=== PATIENT | male | born 1990 | race Caucasian/White ===

== ENCOUNTER 2023-11-23 14:01 | Inpatient (IN) | payer OTHER ==
[2023-11-23 14:45] VITALS: BMI 24.3
[2023-11-23] MEDS ORDERED: MAG HYDROX/AL HYDROX/SIMETH 30 ML UNIT-DOSE CUP PO PRN (15:13)
[2023-11-23] MEDS ORDERED: ONDANSETRON *ODT* 4 MG TABLET SL PRN (15:13)
[2023-11-23] MEDS ORDERED: BENZOCAINE/MENTHOL (CHLORASEPTIC ) LOZENGE MM PRN (15:13)
[2023-11-23] MEDS ORDERED: guaiFENesin 600 MG TABLET.ER (FP) PO PRN (15:13)
[2023-11-23] MEDS ORDERED: BISMUTH SUBSALICYLATE 524 MG/30 ML PO PRN (15:13)
[2023-11-23] MEDS ORDERED: LOPERAMIDE HCL 2 MG CAPSULE PO PRN (15:13)
[2023-11-23] MEDS ORDERED: ACETAMINOPHEN 325 MG TABLET (FP) PO PRN (15:13)
[2023-11-23] MEDS ORDERED: NALOXONE (NARCAN) HCL 4 MG/0.1 ML SPRAY NS PRN (15:13)
[2023-11-23] MEDS ORDERED: DICYCLOMINE HCL 10 MG CAPSULE PO PRN (15:13)
[2023-11-23] MEDS ORDERED: NICOTINE POLACRILEX 2 MG LOZENGE BC PRN (15:13)
[2023-11-23] MEDS ORDERED: POLYETHYLENE GLYCOL (HEALTHYLAX) 3350 17 GM PACKET PO PRN (15:13)
[2023-11-23] MEDS ORDERED: NALOXONE HCL 0.4 MG/ML VIAL IM PRN (15:13)
[2023-11-23] MEDS ORDERED: IBUPROFEN 400 MG TABLET (FP) PO PRN (15:13)
[2023-11-23] MEDS ORDERED: P-EPHED 60MG/TRIPROLIDI 2.5MG TABLET PO PRN (15:13)
[2023-11-23] MEDS ORDERED: MAGNESIUM HYDROX 2400MG/30ML ORAL SUSPENSION 30 ML CUP PO PRN (15:13)
[2023-11-23] MEDS ORDERED: BENZONATATE 200 MG CAPSULE PO PRN (15:13)
[2023-11-23] MEDS ORDERED: cloNIDine HCL 0.1 MG TABLET PO PRN (17:48)
[2023-11-23] MEDS: hydrOXYzine PAMOATE 25 MG CAPSULE (FP) PO PRN (19:57)
[2023-11-23] MEDS: NICOTINE POLACRILEX 2 MG GUM BUC PRN (20:39)
[2023-11-23] MEDS: methaDONE HCL 10 MG TABLET (FOR DETOX USE ONLY) PO ONE (21:16)
[2023-11-23] MEDS: THIAMINE 100 MG TABLET PO SCH (21:18)
[2023-11-23] MEDS: MELATONIN 5 MG TABLETS PO SCH (22:37)
[2023-11-24] MEDS: IBUPROFEN 600 MG TABLET (FP) PO PRN (05:59)
[2023-11-24] MEDS: METHOCARBAMOL 500 MG TABLET PO PRN (06:00)
[2023-11-24] MEDS: PRENATAL VITAMINS W/ FOLIC ACID TABLET (FP) PO SCH (10:01)
[2023-11-24] MEDS ORDERED: diazePAM 5 MG TABLET PO PRN (14:28)
[2023-11-24 15:05] LABS: HEMATOCRIT 39.9 % (35.4-49); HEMOGLOBIN 13.1 GM/dL (11.7-16.9); MCH 27.4 pg (25.7-33.7); MCHC 32.7 g/dl (32.0-35.9); MEAN CELL VOLUME 83.7 fl (80-96); MEAN PLT VOLUME 7.8 fl (7.5-11.1); PLATELET COUNT 327 10^3/uL (134-434); RBC 4.77 M/mm3 (4.00-5.60); RDW 14.6 % (11.9-15.9); WHITE BLOOD COUNT 5.7 K/mm3 (4.0-10.0)
[2023-11-24 15:10] LABS: POTASSIUM 3.9 mmol/L (3.5-5.1)
[2023-11-24 15:20] LABS: CREATININE 1.2 mg/dL (0.55-1.3)
[2023-11-24 15:21] LABS: ALBUMIN 4.3 g/dl (3.4-5.0); BILIRUBIN,TOTAL 1.8 mg/dL (0.2-1); BLOOD UREA NITROGEN 11.4 mg/dL (7-18); TOT PROT 7.6 g/dl (6.4-8.2)
[2023-11-24 15:24] LABS: CALCIUM 9.7 mg/dL (8.5-10.1)
[2023-11-24 19:25] VITALS: BP 133/82; PULSE 63; RESP 16; TEMP 97.9
[2023-11-25] MEDS ORDERED: methaDONE HCL 10 MG TABLET (FOR DETOX USE ONLY) PO ONE (10:00)
[2023-11-27] MEDS ORDERED: methaDONE HCL 10 MG TABLET (FOR DETOX USE ONLY) PO ONE (10:00)
== END 2023-11-24 19:04 | disposition left against medical advice (07) | DRG 770 ==
LOC: YASAS 14:01 → Y6N 18:04
PROVIDERS: ADMIT Allergy & Immunology; ATTEND Surgery
PROC: HZ2ZZZZ Detoxification Services for Substance Abuse Treatment (ICD-10-PCS; principal; 2023-11-23)
DX: F11.23 Opioid dependence with withdrawal (principal); F14.10 Cocaine abuse, uncomplicated; F17.210 Nicotine dependence, cigarettes, uncomplicated
CPT/HCPCS: 36415; 80053; 80305; 85027; 86780; 93005; 93010